=== PATIENT | male | born 2000 | race Caucasian/White ===

== ENCOUNTER 2025-08-31 21:21 | Emergency (ER) | payer OTHER, BC, SELFPAY ==
[2025-08-31 21:48] VITALS: BP 232/132; PULSE 98; RESP 16; TEMP 36.6; O2SAT 96; BMI 48.4
--- NOTE | 2025-08-31 21:58 | XR_ITS ---
PROCEDURE INFORMATION: Exam: XR Left Knee Exam date and time: 08/31/2025 10:14 PM Age: 24 years old Clinical indication: Pain; Knee; Left; Additional info: Pop, pain lateral knee TECHNIQUE: Imaging protocol: Radiologic exam of the left knee. Views: 1 or 2 views. COMPARISON: No relevant prior studies available. FINDINGS: Bones/joints: Lateral plate screw fixation of the proximal lateral tibia. No acute fracture or dislocation or hardware complication. Soft tissues: Normal. IMPRESSION: No acute findings.
--- NOTE | 2025-08-31 21:59 | HMH.EDGENADL ---
Discharge Plan Disposition Patient Disposition: Home, Self-Care Referrals Follow up/Referrals: Olvin Alvarado DO [Staff Physician, Orthopedics] - See instructions Provider,Referral, MD [Referring, Medical] - See instructions Activity Restrictions/Add. Instructions Additional Instructions/Restrictions: I do not appreciate any fractures or dislocation on x-rays today. It is possible that you have injured a ligament in the knee. I encourage you to avoid bearing weight on the knee and follow-up with orthopedic surgeon, Dr. Alvarado, for further evaluation and possible MRI. You can take Tylenol and ibuprofen to help with pain. Your blood pressure has been significantly elevated here in the emergency department puts you at increased risk of strokes and heart attacks. I encourage you to follow-up very closely with your primary care physician on Tuesday to have your blood pressure rechecked and get started on medication if they feel it is necessary. If you develop any new or worsening symptoms, or if you become concerned for your help for any reason, return to the emergency department for evaluation Clinical Impressions Clinical Impression: Injury of knee, left, High blood pressure Print Language Print Language: Mohawk Discharge ED Provider: Luisito Rodriguez General Adult HPI General Chief complaint: Extremity Injury, Lower Stated complaint: AO 10-18 left knee pain , he was dancing Time Seen by Provider: 08/31/25 21:45 Mode of Arrival: Ambulatory Source of Information: Patient Description of Symptoms (Recalled from ER Triage Doc. by RN): pt presents for evaluation of left knee pain that happened after the patient was doing the wobble at a wedding and heard his knee pop. Pt reports pain and tenderness History of Present Illness HPI narrative: Xavier Granados is a 24-year-old male with history of obesity and previous left lower extremity orthopedic surgery for correction of bowleggedness in sixth grade who presents to the emergency department for complaints of a pop and pain to his left knee. Patient states that tonight he was doing a dance called the wobble and had jumped slightly and when he did, he heard a pop and had pain over the lateral aspect of his left knee. He has been unable to bear weight on it due to pain. He reports that he has a plate from his previous orthopedic surgery in this area and is concerned he may have broke the plate. Related Data Allergies Allergy/AdvReac Type Severity Reaction Status Date / Time No Known Allergies Allergy Verified 01/11/20 16:31 [facility] Disclaimer: The information contained in this section may have been updated after the patient was seen, as this information can be updated by other users. Social History Smoking Status: Never smoker alcohol intake: never current occupational status: employed Travel in the last 8 weeks?: None ROS Obtained: Yes Systems reviewed as appropriate & no additional complaints except as documented Physical Exam General General appearance: alert, in no apparent distress and obese Head Head exam: atraumatic Eye Eye exam: Present normal appearance ENT ENT exam: Present normal external ear exam Neck Neck exam: Present full ROM Chest Chest inspection: Present symmetric chest wall rise Respiratory Respiratory exam: Present normal lung sounds bilaterally; Absent respiratory distress Cardiovascular Cardiovascular exam: Present regular rate and normal rhythm Abdominal Exam Abdominal exam: Present soft; Absent tenderness or guarding exam: Present deferred Extremities Exam Extremities exam: Present normal inspection Expanded Lower Extremity Exam Left: Leg image:  1. Tenderness, no swelling or erythema Comment: Left lower extremity: Tenderness over the left lateral knee without significant erythema or swelling. Flexor and extension function at the knee intact. 2+ DP and PT pulses. Back Exam Back exam: Present normal inspection Neurological Exam Neurological exam: Present alert and oriented X3 Psychiatric Psychiatric exam: Present normal affect Skin Skin exam: Present warm and dry Medical Decision Making Medical Records Screening: Per USPSTF and CDC recommendations, given the prevalence of disease in our region, it is our hospital?s policy to screen for HIV and viral Hepatitis for all patients aged 18 and over and those with ongoing risk factors. Max Inquiry Pt receiving controlled substance: No Vital Signs: 08/31/25 21:48 08/31/25 22:06 08/31/25 23:02 Temperature 97.8 F Temperature Source Oral Pulse Rate 89 80 Pulse Rate [Radial] 98 H Respiratory Rate 16 18 16 Blood Pressure 203/131 H 216/149 H Blood Pressure [Right Arm] 232/132 H Blood Pressure Mean [Right Arm] 165 Blood Pressure Position [Right Arm] Sitting 02 Sat by Pulse Oximetry 96 98 96 Oxygen Delivery Method Room Air Room Air Room Air 08/31/25 23:06 Temperature 98.6 F Temperature Source Oral Pulse Rate 80 Pulse Rate [Radial] Respiratory Rate 16 Blood Pressure 216/149 H Blood Pressure [Right Arm] Blood Pressure Mean [Right Arm] Blood Pressure Position [Right Arm] 02 Sat by Pulse Oximetry Oxygen Delivery Method Room Air Orders (Tests/Meds): ED MEDICATIONS Discontinued Medications Generic Name Dose Route Start Last Admin Trade Name Ghazal PRN Reason Stop Dose Admin Acetaminophen 1,000 mg 08/31/25 21:58 08/31/25 22:04 Acetaminophen 500mg Tab PO 08/31/25 21:59 1,000 mg ONCE ONE Administration Ibuprofen 600 mg 08/31/25 21:58 08/31/25 22:05 Ibuprofen 600 Mg Tablet PO 08/31/25 21:59 600 mg ONCE ONE Administration ORDERS Category Date Time Status Knee XR left 2 views [XR knee LT 2V] Stat Exams 08/31/25 21:58 Completed Medical Decision Narrative: Xavier Granados is a 24-year-old male with history of obesity and previous left lower extremity orthopedic surgery for correction of bowleggedness in sixth grade who presents to the emergency department for complaints of a pop and pain to his left knee. Patient states that tonight he was doing a dance called the wobble and had jumped slightly and when he did, he heard a pop and had pain over the lateral aspect of his left knee. He has been unable to bear weight on it due to pain. He reports that he has a plate from his previous orthopedic surgery in this area and is concerned he may have broke the plate. On arrival, patient is noted to be significantly hypertensive with systolic blood pressures over 200, heart rate within normal limits, oxygenating well on room air, afebrile. Physical exam, stated above, revealed obese but nontoxic-appearing male in no distress. He is alert, answering questions appropriately. He is complaining of pain to his left knee on the lateral aspect of the knee. He has tenderness over the lateral aspect of the left knee without erythema, deformity or swelling. Flexor and extension function is intact at the knee. Dorsiflexion and plantarflexion of the foot intact. 2+ DP and PT pulses intact. Sensation is grossly intact. Differential diagnosis includes, but is not limited to: Fracture, ligamentous injury, proximal fibular head fracture/injury, hardware malfunction, among others. The most morbid conditions were considered and workup was based on these. Workup in the emergency room included: Left knee x-rays as well as oral Tylenol and ibuprofen for pain. X-ray imaging was interpreted by me personally. No evidence of fracture, dislocation. No significant effusion. Hardware to the proximal tibia appears to be intact. See final radiology report for details. On reassessment, patient is remaining persistently hypertensive with elevated systolic and diastolic blood pressures. I discussed this further with patient and he states that he does not routinely go to the doctor but has a significant family history of hypertension and strokes. He states that he can follow-up closely with his primary care doctor if needed. I discussed with him that blood pressures this elevated over a sustained period of time put him at increased risk of strokes and heart attacks. He has no other complaints other than the pain in his left knee and I have low concern for hypertensive emergency at this time and I do not feel that additional laboratory studies or imaging is indicated at this time. I offered to start patient on antihypertensive medication, however he wishes to defer at this time and wants to follow-up with his primary care doctor instead. I did give patient strict return precautions. Regarding his knee, I feel the patient likely has a ligamentous injury. I have low concern for occult tibial plateau fracture as patient has been able to bear weight on it, however he does have some pain with bearing weight . Will place patient in an Mann wrap and encouraged him to avoid weightbearing of the left lower extremity at this time. He does not want crutches at this time. Will give him referral with Dr. Alvarado with orthopedic surgery team and encouraged Tylenol and ibuprofen use. All questions were answered. He demonstrated understanding and was in agreement this plan. He was then discharged from the emergency department in stable condition. Critical Care Critical Care Time Critical Care Time: No
[2025-08-31] MEDS: ACETAMINOPHEN 500MG TAB 1000 MG PO (22:04)
[2025-08-31] MEDS: IBUPROFEN 600 MG TABLET PO (22:05)
[2025-08-31 22:06] VITALS: BP 203/131; PULSE 89; RESP 18; O2SAT 98
[2025-08-31 23:02] VITALS: BP 216/149; PULSE 80; RESP 16; O2SAT 96
[2025-08-31 23:06] VITALS: BP 216/149; PULSE 80; RESP 16; TEMP 37; O2SAT 96
== END 2025-08-31 23:10 | disposition home or self-care (01) ==
PROVIDERS: Emergency Provider Student in an Organized Health Care Education/Training Program; PCP Family Medicine
DX: S89.92XA Unspecified injury of left lower leg, initial encounter (principal); R03.0 Elevated blood-pressure reading, without diagnosis of hypertension; E66.9 Obesity, unspecified; X50.1XXA Overexertion from prolonged static or awkward postures, initial encounter
CPT/HCPCS: 73560; 99284

== ENCOUNTER 2025-09-05 06:52 | Outpatient (CLI) | payer OTHER, BC, SELFPAY ==
--- OUTSIDE RECORDS SUMMARY | 2025-09-05 06:54 | XMS_ITS | Clinical Summary ---
Author Organization Healthcare Address [address] [place] [id number] Care Team Providers Care Antique Clocks Repairer Name Role Phone Unavailable Primary Care Provider Unavailabl e Immunizations Immunization Administration Dates Next Due DTaP 12/20/2012, 6,04/06/2004,04/15/2003, HPV 9-Valent 11/21/2018,06/20/2018 HPV, Quadrivalent 11/01/2014 Hep A, Unspecified 11/01/2014 Hep A, ped/adol, 2 dose 06/20/2018 Hep B, adult 12/20/2012,04/15/2003,2002 Hib (PRP-OMP) 12/20/2012,04/06/2004,04/15/2003 ,03/14/2003 IPV 12/20/2012,10/26/2006,09/30/2003 ,03/14/2003 MMR 10/26/2006,01/06/2004 Meningococcal B, Omv 11/21/2018,09/27/2018 Meningococcal MCV4O 09/27/2018,06/21/2014 Pneumococcal Conjugate PCV 13 12/20/2012, 003,04/15/2003,03/14/2003 Tdap 06/21/2014 Varicella 06/21/2014,01/06/2004 Family History Medical History Relation Name Comments Obesity Father Diabetes Maternal Grandfather Leukemia Maternal Grandfather Psoriasis Maternal Grandfather Hypertension Maternal Grandmother Conversions - Other Mother KEYLA (obs tructive sleep apnea) Obesity Mother Conversions - Other Other 1 Dyslipid emia Conversions - Other Other 2 Dyslipid emia Obesity Other 3 Obesity Other 4 Psoriasis Paternal Grandfather Hypertension Paternal Grandmother Relation Name Status Comments Father Maternal Grandfather Maternal Grandmother Mother Other 1 Other 2 Other 3 Other 4 Paternal Grandfather Paternal Grandmother Social History Tobacco Use Types Packs/Day Years Used Date Smoking Tobacco: Passive Smo ke Exposure - Never Smoker Sex and Gender Information Value Date Recorded Sex Assigned at Not on file Legal Sex Male 6:44 PM EDT Gender Identity Not on file Sexual Orientation Not on file Last Filed Vital Signs Vital Sign Reading Time Taken Comments Blood Pressure 149/90 11/17/2018 11:28 AM EST Pulse 67 11/17/2018 11:28 AM EST Temperature 36.5 C (97.7 F) 11/16/2018 11:19 AM EST Respiratory Rate 20 11/17/2018 11:28 AM EST Oxygen Saturation - - Inhaled Oxygen Concentration - - Weight 130 kg (287 lb 4.2 oz) 11/16/2018 11:19 A M EST Height 162.5 cm (5' 3.98 ) 11/16/2018 11:[address] Body Mass Index 49.34 11/16/2018 11:19 AM EST Plan of Treatment Not on file
--- NOTE | 2025-09-05 07:15 | MR_ITS ---
FINAL REPORT TECHNIQUE: Multiplanar MR of the right knee without contrast CLINICAL HISTORY: left knee instability, felt a pop in knee tuesday when dancing. unable to straighten knee and walking with a limp COMPARISON: none FINDINGS: Severe motion artifact limits evaluation. Articular cartilage: No gross defect Marrow signal: Hardware artifact involving the lateral tibial plateau. Remainder of the marrow signal is unremarkable. Joint fluid: Large joint effusion Menisci: Moderate size complex tear posterior horn and body medial meniscus. Lateral meniscus intact. Ligaments: Grade 1 MCL injury. Cruciate and lateral collateral ligaments intact. Tendons: Quadriceps and patellar tendon normal Other: Lateral patellar tilt, likely chronic. IMPRESSION: Significant tear posterior horn and body medial meniscus. Grade 1 MCL injury. Large joint effusion. Reviewed, Interpreted and Dictated by Chantel Valverde MD Transcribed by Ayesha Dove Authenticated and [facility]
== END 2025-09-05 23:59 | disposition home or self-care (01) ==
LOC: RAD 06:53
PROVIDERS: PCP Family Medicine; Visit Provider Physician Assistant
DX: S83.242A Other tear of medial meniscus, current injury, left knee, initial encounter (principal); S83.412A Sprain of medial collateral ligament of left knee, initial encounter; Y93.41 Activity, dancing
CPT/HCPCS: 73721

== ENCOUNTER 2025-09-09 11:00 | Emergency (ER) | payer OTHER, BC, SELFPAY ==
[2025-09-09 11:02] VITALS: BP 204/139; PULSE 74; RESP 18; TEMP 36.6; O2SAT 99; BMI 51.6
--- NOTE | 2025-09-09 11:19 | ED_ITS ---
<Statement entered by Luisito Rodriguez MD - 09/09/25 20:35> I was consulted by the CASSY, and we discussed the complexity of the problems being addressed. I approve the treatment and management plan for this patient's care in the emergency department, thus performing a substantive portion of the medical decision making. Luisito Rodriguez MD Discharge Plan Disposition Chief Complaint: PAIN Prescriptions Prescriptions: No Action No Known Home Medications Referrals Follow up/Referrals: Blanche Puentes [Primary Care Provider, Medical] - See instructions Print Language Print Language: Nepalese Discharge ED Provider: Luisito Rodriguez General Adult HPI <Margot Hsieh (ED), CHANGE CONTROL ANALYST - Last Filed: 09/09/25 11:28> General Chief complaint: PAIN Stated complaint: High BP Time Seen by Provider: 09/09/25 11:14 Mode of Arrival: Ambulatory Source of Information: Patient Description of Symptoms (Recalled from ER Triage Doc. by RN): marisol presents for hypertension. patient was seen in orthopedic office for a surgery evaluation for a left shattered meniscus and was sent over here for further evaluation of his blood pressure which was 220/120 via manual blood pressure. patient stated that he is gonig to cardiology office tomorrow as well. History of Present Illness HPI narrative: 24-year-old male presents to the ED today for complaint of hypertension. Patient went to see Dr. Alvarado for a surgery evaluation for his left knee pain. He is having knee surgery and needed an evaluation before he had surgery. His blood pressure there was 220/120. Patient denies dizziness, vision changes, chest pain, shortness of breath or nausea. Patient says he feels well and has no symptoms. He tells me that he could run a mile if it was not for his knee. He says he does not want to be here he says that he will do what ever it takes to get him out of here . Related Data Home Medications ?Medication ?Instructions ?Recorded ?Confirmed No Known Home Medications 09/03/2508/15 Allergies Allergy/AdvReac Type Severity Reaction Status Date / Time No Known Allergies Allergy Verified 09/09/25 10:20 PFSH <Margot Hsieh (ED), CHANGE CONTROL ANALYST - Last Filed: 09/09/25 11:28> PFS Disclaimer: The information contained in this section may have been updated after the patient was seen, as this information can be updated by other users. Medical History Injury of knee, left Social History Smoking Status: Never smoker alcohol intake: never current occupational status: employed Travel in the last 8 weeks?: None Have you lived/traveled outside US in past 30 days?: No Contact w/someone who lives/traveled outside US past 30 days?: No Exposure to someone with infectious disease in past 14 days?: No Do you have a fever (greater than 100.4 F or 38 C)?: No Have you tested positive for COVID-19?: No Exposed to someone with COVID-19 in past 14 days?: No Do you have a sore throat?: No Do you have a cough?: No Do you have any weakness?: No Do you have any diarrhea?: No Are you experiencing any unusual bleeding?: No Do you have any muscle aches/pain?: No Do you have any abdominal pain?: No Are you experiencing loss of taste or smell?: No Other Medical History Have you received the Pneumonia Vaccine: No <Margot Hsieh (ED), CHANGE CONTROL ANALYST - Last Filed: 09/09/25 11:28> ROS Obtained: Yes Systems reviewed as appropriate & no additional complaints except as documented Constitutional Constitutional: Reports as per HPI Physical Exam <Margot Hsieh (ED), CHANGE CONTROL ANALYST - Last Filed: 09/09/25 11:28> General General appearance: alert and in no apparent distress Head Head exam: normocephalic Eye Eye exam: Present PERRL and EOMI ENT ENT exam: Present normal oropharynx and mucous membranes moist Neck Neck exam: Present full ROM and trachea midline Respiratory Respiratory exam: Present normal lung sounds bilaterally Cardiovascular Cardiovascular exam: Present regular rate, normal rhythm, normal heart sounds, +S1 and +S2 Extremities Exam Extremities exam: Present normal inspection Neurological Exam Neurological exam: Present alert and oriented X3 Skin Skin exam: Present warm and dry Medical Decision Making <Margot Hsieh (ED), CHANGE CONTROL ANALYST - Last Filed: 09/09/25 11:28> Medical Records Screening: Per USPSTF and CDC recommendations, given the prevalence of disease in our region, it is our hospital?s policy to screen for HIV and viral Hepatitis for all patients aged 18 and over and those with ongoing risk factors. Max Inquiry Pt receiving controlled substance: No Max was queried for this patient: No Vital Signs: 09/09/25 11:02 Temperature 97.8 F Temperature Source Oral Pulse Rate [Right Radial] 74 Respiratory Rate 18 Blood Pressure [Right Arm] 204/139 H Blood Pressure Mean [Right Arm] 160 Blood Pressure Source [Right Arm] Automatic Cuff Blood Pressure Position [Right Arm] Sitting 02 Sat by Pulse Oximetry 99 Oxygen Delivery Method Room Air Orders (Tests/Meds): ED MEDICATIONS Generic Name Dose Route Start Last Admin Trade Name Freq PRN Reason Stop Dose Admin Lisinopril 10 mg 09/09/25 11:20 Lisinopril 10mg Tablet PO 09/09/25 11:21 ONCE ONE Medical Decision Narrative: patient is a 24-year-old male presenting to the emergency department for evaluation of hypertension. Patient is hemodynamically stable his blood pressure is 204/139 on arrival and nontoxic-appearing upon arrival, afebrile. Differential diagnosis includes hypertension with no symptoms. I discussed with patient that having hypertension with no symptoms is both good and bad. He needs to be on blood pressure medication. He sees no PCP. He told me that he does see cardiology tomorrow morning. Patient has no symptoms. I discussed with patient that I would give him lisinopril for today and that he is supposed to see cardiology tomorrow. They will likely change but I do but that is okay. Since he has no symptoms we typically will send patients to cardiology or PCP for treatment of hypertension as we cannot monitor them closely as we are the emergency room. I discussed this with Dr. Olvera and he agrees. We will give lisinopril and patient will follow-up with cardiology. If he has any other problems or concerns he is to return to the ED immediately. <Luisito Rodriguez MD - Last Filed: 09/09/25 11:22> Vital Signs: 09/09/25 11:02 Temperature 97.8 F Temperature Source Oral Pulse Rate [Right Radial] 74 Respiratory Rate 18 Blood Pressure [Right Arm] 204/139 H Blood Pressure Mean [Right Arm] 160 Blood Pressure Source [Right Arm] Automatic Cuff Blood Pressure Position [Right Arm] Sitting 02 Sat by Pulse Oximetry 99 Oxygen Delivery Method Room Air Orders (Tests/Meds): ED MEDICATIONS Generic Name Dose Route Start Last Admin Trade Name Freq PRN Reason Stop Dose Admin Lisinopril 10 mg 09/09/25 11:20 Lisinopril 10mg Tablet PO 09/09/25 11:21 ONCE ONE ECG Data Tracing #1: I reviewed this ECG and interpreted as documented below: No ST elevation or depression. Normal sinus rhythm. QTc normal at 382. Critical Care <Margot Hsieh (ED), CHANGE CONTROL ANALYST - Last Filed: 09/09/25 11:28> Critical Care Time Critical Care Time: No
[2025-09-09] MEDS: LISINOPRIL 10MG TABLET 10 MG PO (11:32)
[2025-09-09 11:38] VITALS: BP 228/152; PULSE 82; RESP 16; TEMP 36.7; O2SAT 99
--- OUTSIDE RECORDS SUMMARY | 2025-09-09 11:39 | XMS_ITS | Clinical Summary ---
Author Organization Healthcare Address [address] [place] [id number] Care Team Providers Care Biostatistics Director Name Role Phone Unavailable Primary Care Provider [...]
== END 2025-09-09 11:39 | disposition home or self-care (01) ==
PROVIDERS: Emergency Provider Student in an Organized Health Care Education/Training Program; PCP Family Medicine
DX: R03.0 Elevated blood-pressure reading, without diagnosis of hypertension (principal)
CPT/HCPCS: 99282

== ENCOUNTER 2025-09-10 09:14 | Outpatient (CLI) | payer OTHER, BC, SELFPAY ==
--- OUTSIDE RECORDS SUMMARY | 2025-09-10 09:24 | XMS_ITS | Clinical Summary ---
Author Organization Healthcare Address [address] [place] [phone] Care Team Providers Care Cerner Analyst Name Role Phone Unavailable Primary Care Provider [...]
[2025-09-10 09:50] LABS: Hematocrit 46.5 % (42.0-52.0); Hemoglobin 15.1 g/dL (14.1-18.0); Immature Granulocytes % 0.3 %; Mean Corpuscular HGB Conc 32.5 g/dL (31.8-35.4); Mean Corpuscular Hemoglobin 27.5 pg (27.0-31.2); Mean Corpuscular Volume 84.5 fl (80-94); Nucleated Red Blood Cells % 0 %; Platelet Count 387 K/mm3 (142-424); Red Blood Count 5.50 M/mm3 (4.60-6.20); Red Cell Distribution Width-SD 41.1 fL; White Blood Count 12.0 K/mm3 (4.8-10.8)
[2025-09-10 10:20] LABS: Alanine Aminotransferase 27 U/L (12-78); Albumin Level 4.1 g/dl (3.5-5.0); Alkaline Phosphatase 113 U/L (38-126); Anion Gap 13.6 mEq/L (5-15); Aspartate Amino Transferase 26 U/L (17-59); Bilirubin,Direct 0.2 mg/dl (0.0-0.4); Bilirubin,Indirect 0.3 mg/dL (0.0-0.9); Bilirubin,Total 0.5 mg/dl (0.2-1.3); Bilirubin,Unconjugated 0.3 mg/dL (0.0-1.1); Blood Urea Nitrogen 14 mg/dl (9-20); Calcium 9.7 mg/dl (8.4-10.2); Carbon Dioxide 27 mmol/L (22.0-30.0); Chloride 103 mmol/L (98-107); Cholesterol 218 mg/dl (140-200); Creatinine,Serum 0.90 mg/dl (0.66-1.25); Estimated Glomerular Filt Rate 106 ml/min (>60); GFR (African American) 128 ML/MIN (>60); Glucose 100 mg/dl (74-100); HDL Cholesterol 45 mg/dl (40-60); Magnesium 1.9 mg/dl (1.6-2.3); Potassium 4.6 mmoL/L (3.5-5.1); Sodium 139 mmol/L (136-145); Total Protein,Serum 7.0 g/dl (6.3-8.2); Triglycerides 136 mg/dl (30-150)
[2025-09-10 10:38] LABS: Free T4 (Free Thyroxine) 1.34 ng/dl (0.78-2.19)
[2025-09-10 10:53] LABS: Thyroid Stimulating Hormone 3.52 uIU/mL (0.465-4.68)
== END 2025-09-10 23:59 | disposition home or self-care (01) ==
LOC: LAB 09:15
PROVIDERS: PCP Family Medicine; Visit Provider Nurse Practitioner Family
DX: I16.1 Hypertensive emergency (principal); I10 Essential (primary) hypertension; Z82.49 Family history of ischemic heart disease and other diseases of the circulatory system
CPT/HCPCS: 36415; 80048; 80061; 80076; 83735; 84439; 84443; 85025

== ENCOUNTER 2025-09-20 14:40 | Outpatient (CLI) | payer OTHER, SELFPAY ==
--- OUTSIDE RECORDS SUMMARY | 2025-09-20 14:42 | XMS_ITS | Clinical Summary ---
Author Organization Healthcare Address [address] [place] [id number] Care Team Providers Care Industrial Methods Consultant Name Role Phone Unavailable Primary Care Provider [...]
--- NOTE | 2025-09-20 15:15 | CA_ITS ---
APPROVED REPORT EXAM: Comprehensive 2D, Doppler, and color-flow Echocardiogram Graphic Art Technician: Lulú Guerra RT(R) Ht: 5 ft 6 in Wt: 362lbs BSA: 2.57 BP: 148/78 mmHg Indications: hypertension, preop assessment for knee surgery M-Mode Dimensions RVDd 2.68 cm (0.9-2.6) LA Diam 3.39 cm (1.9-4.0) LVDd 5.26 cm (3.5-5.7) LVDs 3.66 cm (3.5-5.7) IVSd 1.27 cm (0.6-1.1) PWd 1.08 cm (0.6-1.1) EF (Teich) 57.40% FS 30.40% EDV (Teich) 133.00 mL ESV (Teich) 56.60 mL LV Diastology E Decel Time 280 (160-240 msec) E/A Ratio 1.53 Mitral Valve MV A Velocity 43.0 (40-130 cm/s) E/A Ratio 1.53 Left Ventricle The left ventricle is normal size. Left ventricular systolic function is normal. The left ventricular ejection fraction is within the normal range. There is normal left ventricular wall thickness. There is normal LV segmental wall motion. The left ventricular diastolic function is normal. LVEF is 55% Right Ventricle The right ventricle is normal size. The right ventricular systolic function is normal. Atria The left atrium size is normal. The right atrium size is normal. There is no color Doppler evidence of interatrial shunt. Aortic Valve The aortic valve opens well. There is no hemodynamically significant aortic valvular stenosis. No aortic regurgitation is present. Mitral Valve The mitral valve is normal in structure. No evidence of mitral valve stenosis. Trace mitral regurgitation is present. Tricuspid Valve The tricuspid valve leaflets are thin and pliable. Trace tricuspid regurgitation. There is insufficient TR jet to estimate RVSP. Pulmonic Valve The pulmonary valve is grossly normal in structure. Trace pulmonic valve regurgitation is present. Great Vessels The aortic root is normal in size. IVC is normal in size and collapses >50% with inspiration. Pericardium There is no pericardial effusion. Other Information Study Quality: Technically Difficult Conclusion Normal biventricular systolic function. No significant valvular stenosis or regurgitation. Electronically signed by : Lucia Gutierrez MD 09/29/2025 23:51:50
== END 2025-09-20 23:59 | disposition home or self-care (01) ==
LOC: RT 14:41
PROVIDERS: PCP Family Medicine; Visit Provider Nurse Practitioner Family
DX: Z01.810 Encounter for preprocedural cardiovascular examination (principal); I10 Essential (primary) hypertension; R94.31 Abnormal electrocardiogram [ECG] [EKG]; R60.1 Generalized edema; Z82.49 Family history of ischemic heart disease and other diseases of the circulatory system
CPT/HCPCS: 93306

== ENCOUNTER 2025-10-09 10:22 | Outpatient (CLI) | payer OTHER, SELFPAY ==
[2025-10-09 09:23] VITALS: BMI 58.7
--- OUTSIDE RECORDS SUMMARY | 2025-10-09 10:24 | XMS_ITS | Clinical Summary ---
Author Organization Healthcare Address [address] [place] [id number] Care Team Providers Care Financial Accountant Name Role Phone Unavailable Primary Care Provider [...]
--- NOTE | 2025-10-09 10:37 | XR_ITS ---
FINAL REPORT TECHNIQUE: Chest PA & Lateral CLINICAL HISTORY: pre op hx of htn COMPARISON: None FINDINGS: 2 views of the chest were performed. The heart size is normal. The mediastinum is within normal limits. There is no acute cardiopulmonary process. There are no pleural effusions. There is no pneumothorax. The bony thorax appears intact. IMPRESSION: No acute cardiopulmonary process. Reviewed, Interpreted and Dictated by Godwin Cardozo MD Transcribed by Ayesha Dove Authenticated and [facility]
[2025-10-09 11:39] LABS: Hematocrit 44.5 % (42.0-52.0); Hemoglobin 14.5 g/dL (14.1-18.0); Immature Granulocytes % 0.3 %; Mean Corpuscular HGB Conc 32.6 g/dL (31.8-35.4); Mean Corpuscular Hemoglobin 27.6 pg (27.0-31.2); Mean Corpuscular Volume 84.8 fl (80-94); Nucleated Red Blood Cells % 0 %; Platelet Count 380 K/mm3 (142-424); Red Blood Count 5.25 M/mm3 (4.60-6.20); Red Cell Distribution Width-SD 40.5 fL; White Blood Count 13.3 K/mm3 (4.8-10.8)
[2025-10-09 11:46] LABS: Chloride 102 mmol/L (98-107); Potassium 3.9 mmoL/L (3.5-5.1); Sodium 143 mmol/L (136-145)
[2025-10-09 11:49] LABS: Blood Urea Nitrogen 11 mg/dl (9-20); Creatinine Clearance Estimated 104 mL/min (50-200); Creatinine,Serum 1.00 mg/dl (0.66-1.25); Estimated Glomerular Filt Rate 93 ml/min (>60); GFR (African American) 112 ML/MIN (>60)
[2025-10-09 11:50] LABS: Anion Gap 15.9 mEq/L (5-15); Calcium 9.3 mg/dl (8.4-10.2); Carbon Dioxide 29 mmol/L (22.0-30.0); Glucose 80 mg/dl (74-100)
== END 2025-10-09 23:59 | disposition home or self-care (01) ==
LOC: PREOP 10:22
PROVIDERS: PCP Family Medicine; Visit Provider Orthopaedic Surgery
DX: Z01.811 Encounter for preprocedural respiratory examination (principal); Z01.812 Encounter for preprocedural laboratory examination
CPT/HCPCS: 36415; 71046; 80048; 85025

== ENCOUNTER 2025-10-16 07:15 | Day surgery (SDC) | payer OTHER, SELFPAY ==
[2025-10-09 13:52] VITALS: BMI 58.7
[2025-10-16] VITALS (9 sets, daily range): BP systolic 132–160; BP diastolic 71–93; PULSE 65–99; RESP 16–18; TEMP 36.2–36.6; O2SAT 95–97; BMI 55.3
[2025-10-16] MEDS: LACTATED RINGERS 1000ML 1,000 ML 100 ML IV (07:50)
--- NOTE | 2025-10-16 08:42 | P.PNANES_ITS ---
[facility] Disclaimer: The information contained in this section may have been updated after the patient was seen, as this information can be updated by other users. Medical History High blood pressure Hyperlipidemia Pre-operative cardiovascular examination Abnormal electrocardiogram [ECG] [EKG] Edema Injury of knee, left Surgical History History of tonsillectomy History of surgery on lower extremity Family History Other Family history of cancer Family history of diabetes mellitus Family history of heart disease Social History Smoking Status: Never smoker alcohol intake: never substance use type: unknown current occupational status: employed Travel in the last 8 weeks?: None [facility] Anesthesia Checklist Patient Identification Patient Identification: Arm Band and Verbal (Name & ) Structural Data Admitted From: Home Planned Operative Procedure/s: L knee scope Consent for Planned Operative Procedure(s) Verified: Yes Verified Documents: Surgical Consent and History and Physical NPO Status Verified Time NPO: 00:00 Additional verifications Anesthesia Reactions: No Airway Assessment Mallampati Score:: Class III Dentition: Good Dentition Neurological Assessment Level of Consciousness: Awake, Alert and Appropriate Hx Seizures: No Numbness or tingling in extremities: No Anesthesia Plan Anesthesia Risk discussed: Yes Anesthesia Plan: Verified ASA Class: II Anesthesia Type: General
[2025-10-16] MEDS: 0.9 % SODIUM CHLORIDE 100 ML 25 ML IV (09:25)
[2025-10-16] MEDS: CEFAZOLIN 2GM VIAL 2 GM (09:25)
[2025-10-16] MEDS: SODIUM CHLORIDE IRRIG SOLUTION 9,000 ML 25 ML IR (09:52)
[2025-10-16] MEDS: BUPIVACAINE 0.25% 30ML VIAL 75 MG (09:52)
--- NOTE | 2025-10-16 11:27 | EXP.ANES.I ---
[facility] Anesthesia Record Part I Anesthesia Record I Intake, IV Amount: 2,000 Hydration: Adequate Estimated blood loss (mL): 0 Urine output (mL): 0 Blood Pressure: 148/89 SaO2: 96 Pulse Rate: 85 Airway Patency: Patent Respiratory Rate: 16 Temperature: 97.1 F Patient is:: Awake and Stable Stable to PACU at:: 11:25
[2025-10-16] MEDS: MORPHINE 2MG/ML SYRINGE 2 MG IV (11:35)
[2025-10-16] MEDS: ONDANSETRON 4MG/2ML VIAL 4 MG IV (11:36)
--- NOTE | 2025-10-16 11:57 | P.OP_ITS ---
Date of procedure: 10/16/25 Pre-op Diagnosis:: Left knee complex tear medial meniscus Post-op Diagnosis:: Left knee complex large bucket-handle tear flipped into the anterior compartment intercondylar notch medial meniscus Procedure performed:: Left knee arthroscopy with medial meniscal repair Surgeon:: Olvin Alvarado DO Community Mental Health Worker(s):: Stoney WEEKS [employer]:: Compa Van Anesthesia: GETA Estimated blood loss (mL): 5 Clinical Note:: 25-year-old male with significant tearing of the posterior horn medial meniscus his leg was locked and not able to terminally extend the knee surgical intervention was indicated due to the large complex tear of the posterior horn of the medial meniscus efforts were going to be made for meniscal repair versus meniscectomy. Operative findings:: As above large bucket-handle tear incarcerated into the intercondylar notch in the anterior compartment the posterior horn of the medial meniscus. Operative note:: Patient identified preoperatively. Left knee marked yes my initials. Transferred operative suite. Placed upon operating bed. General anesthesia administered airway secured. Left lower extremity prepped and draped normal sterile fashion. Once prepped and draped final operative timeout performed to identify proper patient procedure and extremity. Everyone involved in the case agreed. Is no counter indications to beginning. Did receive preoperative antibiotics Marking pen was used to santiago the bony landmarks of the knee and standard portal sites. Esmarch was used to exsanguinate the extremity pneumatic tourniquet inflated to 300 mmHg. Skin knife was used incise standard anterior lateral portal and blunt trocar was placed in the patellofemoral joint exchange with a c amera. I swept directly into the medial joint line where the anterior medial portal was made under direct visualization with a spinal needle in order to allow for direct access to the entirety of the meniscus. Of note there was a large tear of the posterior horn the medial meniscus bucket-handle type that was incarcerated into the anterior compartment intercondylar notch. Probe was utilized after portal was made to flip the tear back into its reduced position in the posterior aspect of the medial joint line. And then repair was was subsequently started. Initially I started with a circumferential stitch in the midportion posterior horn of the medial meniscus this gave good compression and repair to the midportion. There were areas at the back capsule where there was no tissue to obtain at the periphery therefore all inside flush anchor meniscal repair device was utilized to repair the meniscus on both sides a circumferential stitch and additional circumferential stitch was placed and tied as well. This process was completed and feel a good repair and the entirety of the tear of the meniscus was obtained. Once this was obtained diagnostic arthroscopy began in the intercondylar notch the ACL was intact scope into the lateral joint line lateral meniscus was intact lateral cartilage intact. In the medial lateral gutters in the patellofemoral joint no other pathology was seen. Camera is removed the joint was drained local anesthesia infiltrated the portals skin closed with nylon stitch sterile dressing placed from foot to thigh patient was anesthesia taken recovery stable condition. Condition: stable Disposition: PACU Complications:: None apparent
--- NOTE | 2025-10-17 07:54 | EXP.ANES.II ---
[facility] Anesthesia Record Part II Anesthesia Record Part II Discharge Time: 12:26 Destination: Surgical Day Care (OP Surgery) PACU nurse assessment reviewed?: Yes Patient Condition:: Good Anesthesia Complications:: None Swallowing reflex intact?: Yes Airway Patency: Patent Cyanosis?: No Blood Pressure: 149/86 SaO2: 97 Respiratory Rate: 18 Pulse Rate: 83 Temperature: 97.4 F Mental Status: Alert & Oriented Pain level:: 0 Nausea and/or vomitting:: None Intake, IV Amount: 0 Hydration: Adequate
[2025-10-17 07:55] VITALS: BP 149/86; PULSE 83; RESP 18; TEMP 36.3; O2SAT 97
== END 2025-10-16 12:26 | disposition home or self-care (01) ==
PROVIDERS: PCP Family Medicine; Visit Provider Orthopaedic Surgery
PROC: (CPT 29870; principal; 2025-10-16 09:00)
DX: S83.212A Bucket-handle tear of medial meniscus, current injury, left knee, initial encounter (principal); I10 Essential (primary) hypertension; E78.5 Hyperlipidemia, unspecified; Z96.7 Presence of other bone and tendon implants; X58.XXXA Exposure to other specified factors, initial encounter
CPT/HCPCS: 29882; C1713; J0665; J0690; J1100; J1885; J2003; J2250; J2270; J2405; J2704; J3010; J7120